=== PATIENT | male | born 1990 | race Caucasian/White ===

== ENCOUNTER 2021-05-13 18:17 | Emergency (ER) | payer BC, OTHER ==
[~2021-05-13] VITALS: Ht 177.8 cm; Wt 71.7 kg
[2021-05-13 20:55] VITALS: BP 121/79
[2021-05-13] MEDS ORDERED: LIDOCAINE 1% HCL (LOCAL ANESTH.) INJ 20ML MDV IJ ONE (21:30)
== END 2021-05-14 01:06 | disposition home or self-care (01) ==
LOC: ER 18:20
DX: S61.213A Laceration without foreign body of left middle finger without damage to nail, initial encounter (principal); X78.8XXA Intentional self-harm by other sharp object, initial encounter; Y93.89 Activity, other specified; Y92.89 Other specified places as the place of occurrence of the external cause; Y99.8 Other external cause status
CPT/HCPCS: 12002; 73130